=== PATIENT | male | born 1955 | race African-American/Black ===

== ENCOUNTER 2018-02-09 13:36 | Observation (INO) | payer OTHER ==
[~2018-02-09] VITALS: Ht 175.3 cm; Wt 64.6 kg
--- NOTE | 2018-02-09 14:05 | ED SYNCOPE COMPLAINT ---
History of Present Illness General Chief Complaint: Syncope and Near-Syncope Stated Complaint: BIBA SYNCOPE Source: patient, family, EMS Exam Limitations: no limitations Vital Signs & Intake/Output Vital Signs & Intake/Output ED Intake and Output 02/12 0000 02/11 1200 Intake Total 600 Output Total Balance 600 Intake, Oral 600 Allergies Coded Allergies: mercury (elemental) (Intermediate, UNKNOWN 02/09/18) iodine (RASH/SWELLING 02/10/18) Triage Note: TYREE FROM WORK, HAD SYNCOPAL EPISODE AT WORK WHILE EATING LUNCH. PRESENTLY AWAKE, ALERT, REPORTS HE FELT DIZZY PRIOR TO EPISODE, ALOS STAES HE FELL THIS AM, (SLID ON BUTTOCKS DOWN STAIRS). C/O PAIN IN LEFT ELBOW. DENIES CHEST PAIN, SOB OR DIZZINESS NOW. Triage Nurses Notes Reviewed? yes Timing: single episode today Precipitating Factors: lightheadedness Loss of Consciousness: brief (seconds) HPI: 62-year-old male comes into emergency room for further evaluation after having a syncopal episode at work. Patient reports he woke up around 6:30 AM this morning. He reports that he slipped down 14 steps on his rear end. He felt slightly disoriented after the fall. He braced himself with his left elbow. Denies hitting his head. He reports left elbow pain from the fall. Denies any neck pain chest pain abdominal pain. He reports that he drove himself to work. He went later on to go to the cafeteria. He reports that he had 2 bites of a sandwich and then started to see purple. He was feeling lightheaded and dizzy and then lost consciousness. He denied any preceding chest pain or shortness of breath. He was brought in by ambulance. (Baljit FIGUEROA,Ruperto) Reconcile Medications Apixaban (Eliquis) 5 MG TABLET 1 TAB PO BID Atrial Fibrilliation (Reported) Diltiazem HCl 60 MG TABLET 1 TAB PO Q12 Heart health Take and F/U with cardiology Pravastatin Sodium 10 MG TABLET 0.5 TAB PO DAILY Heart Health (Reported) (Lexus MALDONADO,Diana) Past History Travel History Traveled to [place] past 21 day No Medical History Any Pertinent Medical History? see below for history Cardiovascular: AFIB Surgical History Surgical History: non-contributory Psychosocial History What is your primary language Egyptian Tobacco Use: Never used ETOH Use: denies use Family History Hx Contributory? No (Ruperto Whittaker) Review of Systems Review of Systems Constitutional: Reports: no symptoms. EENTM: Reports: no symptoms. Respiratory: Reports: no symptoms. Cardiovascular: Reports: see HPI. GI: Reports: no symptoms. Genitourinary: Reports: no symptoms. Musculoskeletal: Reports: see HPI. Skin: Reports: no symptoms. Neurological/Psychological: Reports: see HPI. All Other Systems: Reviewed and Negative (Ruperto Whittaker) Physical Exam Physical Exam General Appearance: well developed/nourished, alert, awake Head: atraumatic Eyes: Bilateral: normal appearance, PERRL, EOMI. Ears, Nose, Throat: normal ENT inspection, hearing grossly normal Neck: normal inspection, supple, full range of motion, no midline tenderness Respiratory: normal breath sounds, chest non-tender, no respiratory distress, nO BRUISING OR TRAUMA APPRECIATED Cardiovascular: bradycardia, irregularly irregular Gastrointestinal: soft, non-tender Back: normal inspection, normal range of motion, no vertebral tenderness, NO ECCHYMOSIS NO BRUISING NO TENDERNESS WITH PALPATION Extremities: normal inspection, no edema Psychiatric: awake, alert, oriented x 3 Cranial Nerves: normal hearing, normal speech, PERRL Motor/Sensory: no motor/sensory deficits Skin: intact Comments: C CSPINE CLEARED VIA NEXUS CRITERIA Core Measures ACS in differential dx? Yes CVA/TIA Diagnosis: No Sepsis Present: No Sepsis Focused Exam Completed? No (Ruperto Whittaker) Progress Differential Diagnosis: AMI, aortic dissection, aortic valve, drug induced syncope, hyperventilation, orthostatic syncope, other valvular disease, pericardial tamponade, pulmonary embolus, seizure, sick sinus syndrome, subarachnoid hem., TIA/CVA, vasodepressor syncope, ventricular tach/fib Diagnostic Imaging: Viewed by Me: Radiology Read, CT Scan. Discussed w/RAD: Radiology Read, CT Scan. Initial ED EKG: rate (62), AFIB, nonspecific ST T wave chg (Ruperto Whittaker) Plan of Care: Orders Procedure Date/time Status Regular Diet 02/10 B Active Change service to 02/10 1040 Active CBC WITHOUT DIFFERENTIAL 02/10 0600 Complete BASIC ELECTROLYTES PLUS BUN&CR 02/10 0600 Complete TROPONIN LEVEL 02/10 0230 Complete EKG 02/10 0230 Active MISSING MEDICATION FORM 02/09 2201 Active TROPONIN LEVEL 02/09 2030 Complete EKG 02/09 2030 Active Vital Signs 02/09 185 Active Teach/Educate 02/09 185 Active Pain Treatment and Response 02/09 185 Active Nutritional Intake, Monitor 02/09 185 Active Isolation 02/09 185 Active Intake & Output 02/09 185 Active Patient Care Conference 02/09 185 Active Activity/Ambulation 02/09 185 Active Pathway - chart 02/09 184 Active House Staff 02/09 184 Active Code Status 02/09 1847 Active Patient Data 02/[address] in observation 02/09 171 Active ED Holding Orders 02/09 1717 Active Vital Signs 02/09 171 Active Code Status 02/09 1717 Complete MISTAKE 02/09 1505 Active MAGNESIUM 02/09 1422 Complete MISTAKE 02/09 1400 Active Telemetry/Sod Farmer 02/09 1400 Active TROPONIN LEVEL 02/09 1400 Complete PARTIAL THROMBOPLASTIN TIME 02/09 1400 Complete PROTHROMBIN TIME 02/09 1400 Complete COMPREHENSIVE METABOLIC PANEL 02/09 1400 Complete CBC WITHOUT DIFFERENTIAL 02/09 1400 Complete Intake & Output 02/09 1352 Active EKG 02/09 1352 Active Lab Add-on Test 02/09 UNK Active VTE Mechanical Prophylaxis 02/09 UNK Active Current Medications Sig/Joy Start time Last Medication Dose Stop Time Status Admin Diltiazem HCl 60 MG Q12 02/10 1007 AC 02/10 (Cardizem) 1142 Apixaban 5 MG 0700,1900 02/09 1900 AC 02/10 (Eliquis) 0753 Pravastatin Sodium 5 MG 1900 02/09 190 AC (Pravachol) Laboratory Tests 02/10/18 0415: Troponin I < 0.01 02/10/18 0415: Anion Gap 12, Estimated GFR > 60, BUN/Creatinine Ratio 22.9, CBC w Diff NO MAN DIFF REQ, RBC 3.92 L, MCV 97.8 H, MCH 33.5 H, MCHC 34.3, RDW 12.3, MPV 9.4, Gran % 59.1, Lymphocytes % 26.8, Monocytes % 11.9 H, Eosinophils % 1.6, Basophils % 0.6, Absolute Granulocytes 2.9, Absolute Lymphocytes 1.3, Absolute Monocytes 0.6, Absolute Eosinophils 0.1, Absolute Basophils 0 02/09/182034: Troponin I < 0.01 02/09/18 1422: Anion Gap 14, Estimated GFR > 60, BUN/Creatinine Ratio 31.4 H, Glucose 111 H, Calcium 9.2, Magnesium 1.6, Total Bilirubin 0.9, AST 47, ALT 48, Alkaline Phosphatase 67, Troponin I < 0.01, Total Protein 7.2, Albumin 4.5, Globulin 2.7, Albumin/Globulin Ratio 1.7, PT 16.1 H, INR 1.47 H, APTT 29, CBC w Diff NO MAN DIFF REQ, RBC 3.84 L, MCV 97.0 H, MCH 33.8 H, MCHC 34.9, RDW 12.3, MPV 8.7, Gran % 79.8 H, Lymphocytes % 10.9 L, Monocytes % 8.2, Eosinophils % 0.7, Basophils % 0.4, Absolute Granulocytes 5.6, Absolute Lymphocytes 0.8 L, Absolute Monocytes 0.6, Absolute Eosinophils 0, Absolute Basophils 0 Diagnostic Imaging: Viewed by Me: Radiology Read, CT Scan. Discussed w/RAD: Radiology Read, CT Scan. Radiology Impression: PATIENT: JENNIFER CARRILLO PRESENT AGE: 62 PATIENT ACCOUNT NO: [id number] : 53 LOCATION: [facility] ORDERING PHYSICIAN: Ruperto FIGUEROA SERVICE DATE: 02/09/18 EXAM TYPE : CAT - CT HEAD WO IV CONTRAST EXAMINATION: CT HEAD WITHOUT CONTRAST CLINICAL INFORMATION: Fell down 12 steps. Syncope after. COMPARISON: None. TECHNIQUE: Contiguous axial imaging was performed from the skull base to vertex without intravenous administration of contrast. DLP: 616 mGy-cm. FINDINGS: There is no intracranial hemorrhage, large infarction, or mass lesion. There is no extra- axial collection. There is mild diffuse brain parenchymal volume loss with prominence of the ventricles and sulci. No evidence of hydrocephalus. The paranasal sinuses are clear. The mastoids and middle ear cavities are clear. The calvarium is intact. IMPRESSION: No acute intracranial abnormality. DICTATED BY: Bella Owusu MD DATE/TIME DICTATED:02/09/181557 QUALITY ASSURANCE TESTER:GRACIE DATE/TIME TRANSCRIBED:02/09/181557 CONFIDENTIAL, DO NOT COPY WITHOUT APPROPRIATE AUTHORIZATION. <Electronically signed in Other Vendor System> SIGNED BY: Bella Owusu MD 02/09/18 1605, PATIENT: JENNIFER CARRILLO PRESENT AGE: 62 PATIENT ACCOUNT NO: [id number] : 53 LOCATION: [facility] ORDERING PHYSICIAN: Ruperto FIGUEROA SERVICE DATE: 02/09/181400 EXAM TYPE: RAD - XRY-ELBOW 3 OR MORE VIEWS, L EXAMINATION: XR ELBOW, LEFT CLINICAL INFORMATION: Fall. Pain. COMPARISON: None TECHNIQUE: Four views of the left elbow. FINDINGS: The bones and soft tissues are normal. No fracture or joint effusion. Alignment is anatomic. Joint spaces are maintained. IMPRESSION: No acute abnormality. If pain persists follow-up studies are recommended. DICTATED BY: Nick Coleman MD DATE/TIME DICTATED:02/09/181540 QUALITY ASSURANCE TESTER :GRACIE DATE/TIME TRANSCRIBED:02/09/181540 CONFIDENTIAL, DO NOT COPY WITHOUT APPROPRIATE AUTHORIZATION. <Electronically signed in Other Vendor System> SIGNED BY: Nick Coleman MD 02/09/18 1546, PATIENT: JENNIFER CARRILLO PRESENT AGE: 62 PATIENT ACCOUNT NO: [id number] : LOCATION: [facility] ORDERING PHYSICIAN: Ruperto FIGUEROA SERVICE DATE: EXAM TYPE: RAD - XRY-CHEST XRAY, TWO VIEWS EXAMINATION: XR CHEST CLINICAL INFORMATION: Trauma. COMPARISON: None TECHNIQUE: 2 views of the chest were obtained. FINDINGS: There is an old healed fracture of the posterior lateral right fourth rib. There is no acute osseous abnormality. There is no pleural effusion or pneumothorax. The lungs are clear. The cardiac and mediastinal contours are normal. The heart size is normal. There are calcifications of aortic arch. There is mild degenerative spondylosis of the dorsal spine. IMPRESSION: No acute abnormality the chest. DICTATED BY: Nick Coleman MD DATE/TIME DICTATED:02/09/181538 QUALITY ASSURANCE TESTER:LITTLE DATE/TIME TRANSCRIBED:02/09/181538 CONFIDENTIAL, DO NOT COPY WITHOUT APPROPRIATE AUTHORIZATION. <Electronically signed in Other Vendor System> SIGNED BY: Nick Coleman MD 02/09/181543 (Diana Alberts MD) Departure Departure Condition: Stable Departure Forms: Customer Survey General Discharge Information (Ruperto Whittaker) Departure Disposition: STILL A PATIENT Clinical Impression Primary Impression: Syncope and collapse Secondary Impressions: Bradycardia, Fall Prescriptions: Current Visit Scripts Diltiazem HCl 1 TAB PO Q12 #30 TAB Take and F/U with cardiology Admission Note Documentation of Exam: Documentation of any treatments & extenuating circumstances including Concerns Regarding Discharge (functional status, medication knowledge or non-compliance, living conditions, etc.) that warrant an admission rather than observation: Observation Note [facility] Non-ED OBS Care Area Rationale for Observation: My rational for observation is as follows fall down flight of stairs followed by syncopal episode 3 hours later, afib on monitor with bradycardia to 40's, willl observe in telemetry, cardiology consult, neuro checks, echocardiogram. (Diana Alberts MD) Departure Forms: Customer Survey General Discharge Information Prescriptions: Current Visit Scripts Apixaban (Eliquis) 1 TAB PO BID #60 TAB Pravastatin Sodium 0.5 TAB PO DAILY #30 TAB Diltiazem HCl (Diltiazem 24HR ER) 1 CAP PO DAILY #30 CAP (Ruperto Whittaker) Departure Disposition: STILL A PATIENT Clinical Impression Primary Impression: Syncope and collapse Secondary Impressions: Bradycardia, Fall Admission Note Documentation of Exam: Documentation of any treatments & extenuating circumstances including Concerns Regarding Discharge (functional status, medication knowledge or non-compliance, living conditions, etc.) that warrant an admission rather than observation: Observation Note Spoke With: Pushpa Lyons MD [facility] Patient In: Non-ED OBS Care Area Rationale for Observation: My rational for observation is as follows fall down flight of stairs followed by syncopal episode 3 hours later, afib on monitor with bradycardia to 40's, willl observe in telemetry, cardiology consult, neuro checks, echocardiogram. (Diana Alberts MD)
[2018-02-09 14:29] LABS: ABSOLUTE BASOPHIL COUNT 0 /CUMM (0.0-0.2); ABSOLUTE EOSINOPHIL COUNT 0 /CUMM (0.0-0.7); ABSOLUTE GRANULOCYTE CT 5.6 /CUMM (1.4-6.5); ABSOLUTE LYMPH COUNT 0.8 /CUMM (1.2-3.4); ABSOLUTE MONOCYTE COUNT 0.6 /CUMM (0.10-0.60); BASOPHIL % 0.4 % (0.0-2.0); EOSINOPHIL % 0.7 % (0-5); GRANULOCYTE % 79.8 % (42.2-75.2); HEMATOCRIT 37.2 % (42-52); MEAN CORPUSCULAR HGB 33.8 PG (27.0-31.0); MEAN CORPUSCULAR HGB CONC 34.9 G/DL (33.0-37.0); MEAN PLATELET VOLUME 8.7 FL (7.4-10.4); RBC DISTRIBUTION WIDTH 12.3 % (11.5-14.5); RED BLOOD CELL CT 3.84 /CUMM (4.70-6.10); WHITE BLOOD CELL COUNT 7.1 /CUMM (4.8-10.8)
[2018-02-09 14:43] LABS: PT 16.1 SEC (9.4-12.5); PTT 29 SEC (25-37)
[2018-02-09 14:49] LABS: PLATELET COUNT 96 /CUMM (130-400)
--- NOTE | 2018-02-09 15:44 | RADIOLOGY REPORT ---
EXAMINATION: XR CHEST CLINICAL INFORMATION: Trauma. COMPARISON: None TECHNIQUE: 2 views of the chest were obtained. FINDINGS: There is an old healed fracture of the posterior lateral right fourth rib. There is no acute osseous abnormality. There is no pleural effusion or pneumothorax. The lungs are clear. The cardiac and mediastinal contours are normal. The heart size is normal. There are calcifications of aortic arch. There is mild degenerative spondylosis of the dorsal spine. IMPRESSION: No acute abnormality the chest.
--- NOTE | 2018-02-09 15:46 | RADIOLOGY REPORT ---
EXAMINATION: XR ELBOW, LEFT CLINICAL INFORMATION: Fall. Pain. COMPARISON: None TECHNIQUE: Four views of the left elbow. FINDINGS: The bones and soft tissues are normal. No fracture or joint effusion. Alignment is anatomic. Joint spaces are maintained. IMPRESSION: No acute abnormality. If pain persists follow-up studies are recommended.
--- NOTE | 2018-02-09 16:05 | CT SCAN REPORT ---
EXAMINATION: CT HEAD WITHOUT CONTRAST CLINICAL INFORMATION: Fell down 12 steps. Syncope after. COMPARISON: None. TECHNIQUE: Contiguous axial imaging was performed from the skull base to vertex without intravenous administration of contrast. DLP: 616 mGy-cm. FINDINGS: There is no intracranial hemorrhage, large infarction, or mass lesion. There is no extra-axial collection. There is mild diffuse brain parenchymal volume loss with prominence of the ventricles and sulci. No evidence of hydrocephalus. The paranasal sinuses are clear. The mastoids and middle ear cavities are clear. The calvarium is intact. IMPRESSION: No acute intracranial abnormality.
--- NOTE | 2018-02-09 17:44 | PN- Att Addend ---
Attending Addendum Attending Brief Note Patient seen and examined. Plan of care discussed with the medical team and the patient. Available lab work and radiology test reports were reviewed. Patient 62-year-old male with history of A. fib currently on Cardizem and eliquis who fell down this morning while going downstairs without losing consciousness. Later he went to work and while eating lunch or passed out momentarily. He felt lightheaded before the episode. He denies any palpitation difficulty breathing recent fever chills nausea vomiting diarrhea or abdominal pain. A 14 point review system otherwise is negative. While in ED he was observed to have his heart rate dropped to 40s although patient is asymptomatic. Please see interns history physical for social history medication allergies and family history. Family historyis unremarkable and noncontributory to current presentation. Vital Signs Date Time Temp Pulse Resp B/P B/P Pulse O2 O2 Flow FiO2 Mean Ox Delivery Rate 02/09 1415 56 02/09 1348 99.0 47 20 108/66 Intake & Output 02/09 1600 02/09 0800 02/09 0000 Intake Total 1000 Output Total Balance 1000 Intake, IV 1000 Patient 145 lb Weight Weight Reported by Patient Measurement Method Exam: General: Patient awake alert oriented without any distress CVS: S1 plus S2 without any murmur or gallops Chest: Few scattered crepitation without any wheeze. There is no respiratory distress. Abdomen: Soft non-tender, bowel sound present, no guarding or rebound RESEARCH BIOSTATISTICIAN: Awake alert oriented without any focal neuro deficit and follows commands appropriately Extremities: No edema; no clubbing or cyanosis noted Laboratory Tests 02/09/18 1422: Anion Gap 14, Estimated GFR > 60, BUN/Creatinine Ratio 31.4 H, Glucose 111 H, Calcium 9.2, Total Bilirubin 0.9, AST 47, ALT 48, Alkaline Phosphatase 67, Troponin I < 0.01, Total Protein 7.2, Albumin 4.5, Globulin 2.7, Albumin/ Globulin Ratio 1.7, PT 16.1 H, INR 1.47 H, APTT 29, CBC w Diff NO MAN DIFF REQ , RBC 3.84 L, MCV 97.0 H, MCH 33.8 H, MCHC 34.9, RDW 12.3, MPV 8.7, Gran % 79.8 H, Lymphocytes % 10.9 L, Monocytes % 8.2, Eosinophils % 0.7, Basophils % 0.4, Absolute Granulocytes 5.6, Absolute Lymphocytes 0.8 L, Absolute Monocytes 0.6, Absolute Eosinophils 0, Absolute Basophils 0 EKG shows A. fib Had CT scan did not show any bleed. Chest x-ray is unremarkable. Elbow x-ray was negative for any fracture. Assessment * Fall * Syncope likely vasovagal, could be possibly related to bradycardia * History of A. fib currently on Cardizem and eliquis Plan * Observe on telemetry * Check troponin 2 more sets * Hold Cardizem * Continue eliquis * Check orthostatics * Cardiology consultation
--- NOTE | 2018-02-09 17:52 | History & Physical ---
See Addendum General Information and HPI MD Statement: I have seen and personally examined JENNIFER CARRILLO and documented this H&P. The patient is a 62 year old M who presented with a patient stated chief complaint of [syncopal episode and fall]. 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 Around 6 AM the patient slipped and fell while he was going down the stairs. He denies dizziness, shortness breath, blurry vision, or loss of consciousness prior to this fall. After he slipped down 14 steps he felt mildly confused and back to his normal state of health soon after. He denies any head trauma. The patient felt fine so he drove work. Around 12:30 PM he was eaten lunch when he suddenly noticed that the colors looks weird and everything looks purple and felt not himself after which she lost consciousness for less than a minute. According to his colleague who was sitting next to. He denies dizziness, palpitation, or chest pain prior to the fall. His friend denies any seizure activity and the patient denies tongue biting or loss of control over bowel or urine habits. The patient denies any confusion, weakness, or numbness after the syncopal episode. The patient was advised by his rate inserter for plan for cardioversion, however he would like to do it after 2 weeks given that he will be 63 and then he will get Medicare. Allergies/Medications Allergies: Coded Allergies: mercury (elemental) (Intermediate, UNKNOWN 02/09/18) iodine (RASH/SWELLING 02/10/18) Home Med list Apixaban (Eliquis) 5 MG TABLET 1 TAB PO BID blood thiner Diltiazem HCl (Diltiazem 24HR ER) 240 MG CAP.ER.24H 1 CAP PO DAILY heart health Pravastatin Sodium 10 MG TABLET 0.5 TAB PO DAILY hdl Observation Initial Note - I have personally examined JENNIFER CARRILLO on 02/10/18 at 0745. The disposition of JENNIFER CARRILLO is uncertain at this time and before a determination can be made, he requires a period of observation for the following reasons [need monitoring for syncope and observed bradycardia on ED] Past History Travel History Traveled to [place] past 21 day No Medical History Cardiovascular: AFIB Surgical History Surgical History: non-contributory Past Family/Social History Psychosocial History ETOH Use: denies use Review of Systems Review of Systems Constitutional: Denies: chills, diaphoresis, fever, malaise, weakness, unexplained weight loss. EENTM: Reports: visual changes. Denies: blurred vision, double vision, hearing changes. Cardiovascular: Reports: syncope. Denies: chest pain, orthopena, palpitations, peripheral edema. Respiratory: Denies: cough, orthopnea, short of breath, sputum production, wheezing. GI: Denies: abdominal pain, constipation, diarrhea, nausea, vomiting. Genitourinary: Denies: dysuria, hematuria. Musculoskeletal: Denies: joint pain. Skin: Denies: rash. Neurological/Psychological: Reports: confusion. Denies: anxiety, ataxia, depressed, dementia, emotional problems, headache, numbness, paresthesia, tingling, tremors, tonic-clonic seizures. Exam & Diagnostic Data Last 24 Hrs of Vital Signs/I&O Vital Signs Date Time Temp Pulse Resp B/P B/P Pulse O2 O2 Flow FiO2 Mean Ox Delivery Rate 02/09 1820 98.5 83 18 100/60 96 Room Air 02/09 1744 80 16 135/83 99 Room Air 02/09 1415 56 02/09 1348 99.0 47 20 108/66 Intake & Output 02/09 1600 02/09 0800 02/09 0000 Intake Total 1000 Output Total Balance 1000 Intake, IV 1000 Patient 65.771 kg Weight Weight Reported by Patient Measurement Method Physical Exam General Appearance Alert, Oriented X3, Cooperative, No Acute Distress Skin No Rashes HEENT Atraumatic, PERRLA, EOMI, Mucous Membr. moist/pink Neck No JVD Cardiovascular Normal S1, Normal S2, No Murmurs, irregular Lungs decrease air-entry over lung base bilaterally. no additional sounds Abdomen Soft, No Tenderness Neurological Normal Speech, Strength at 5/5 X4 Ext, Normal Tone, Cranial Nerves 3-12 NL Extremities No Clubbing, No Cyanosis, No Edema Last 24 Hrs of Labs/Ozzy: Laboratory Tests 02/09/18 1422: Anion Gap 14, Estimated GFR > 60, BUN/Creatinine Ratio 31.4 H, Glucose 111 H, Calcium 9.2, Magnesium Pending, Total Bilirubin 0.9, AST 47, ALT 48, Alkaline Phosphatase 67, Troponin I < 0.01, Total Protein 7.2, Albumin 4.5, Globulin 2.7, Albumin/Globulin Ratio 1.7, PT 16.1 H, INR 1.47 H, APTT 29, CBC w Diff NO MAN DIFF REQ, RBC 3.84 L, MCV 97.0 H, MCH 33.8 H, MCHC 34.9, RDW 12.3, MPV 8.7, Gran % 79.8 H, Lymphocytes % 10.9 L, Monocytes % 8.2, Eosinophils % 0.7, Basophils % 0.4, Absolute Granulocytes 5.6, Absolute Lymphocytes 0.8 L, Absolute Monocytes 0.6, Absolute Eosinophils 0, Absolute Basophils 0 Assessment/Plan Assessment: This is 62-year-old male with a recently diagnosed atrial fibrillation who presented after fall that was followed by syncopal episode a few hours later. While in the ED he was found to be bradycardic down to 47. The patient is currently on Cardizem 240 extended release and liquids for anticoagulation. He is also on statin for hyperlipidemia. We didn't have any old records on the patient, is currently unknown if he has any underlying anatomical abnormality that may explain his atrial fibrillation. He has a copy of his recent echocardiogram at home, his for bringing it early in the morning. The patient will need to be monitored in telemetry to look for bradycardia, bradycardia tachycardia syndrome, and other arrhythmias. He took his Cardizem early in the morning. Given the cardioversion was recommended by his cardiology , most likely he has no significant abnormalities on his recent echocardiogram. We will consult rate inserter in a.m. Problem list 1.Atrial fibrillation with one episode of bradycardia while on Cardizem 240 2-HDL * We'll admit the patient to telemetry floor * We will rule out ACS with serial EKG and troponin first set was insignificant * Orthostatic check * Patient already got the Cardizem dose for today, if he sustained tomorrow we will start him in Cardizem 3 times a day recheck if he can be controlled with the lower dose of Cardizem given the bradycardia that was observed in the ED. * We will continue anticoagulation and statin * Heart healthy diet * Obtain records especially echocardiogram * DVT prophylaxis with Alps and Eliquis * FC As Ranked By This Provider Problem List: 1. Bradycardia 2. Fall 3. Syncope and collapse Core Measures/Misc (06/13) Acute Coronary Syndrome ACS Diagnosis: No Congestive Heart Failure Congestive Heart Failure Diagnosis No Cerebrovascular Accident CVA/TIA Diagnosis: No VTE (View Protocol) VTE Risk Factors Acute Medical Illness No Mechanical VTE Prophylaxis d/t N/A MechProphylax Ordered No VTE Pharm Prophylaxis d/t NA PharmProphylax ordered Sepsis (View protocol) Sepsis Present: No
[2018-02-09] MEDS ORDERED: PRAVASTATIN SOD10 M2 PO (18:08)
[2018-02-09] MEDS ORDERED: ELIQUIS5 M1 PO (18:08)
[2018-02-09] MEDS ORDERED: DILTIAZEM 24HR240 MG PO (18:08)
[2018-02-09 18:20] VITALS: BP 100/60
[2018-02-09 22:32] VITALS: BP 106/78
[2018-02-10 04:35] LABS: ABSOLUTE BASOPHIL COUNT 0 /CUMM (0.0-0.2); ABSOLUTE EOSINOPHIL COUNT 0.1 /CUMM (0.0-0.7); ABSOLUTE GRANULOCYTE CT 2.9 /CUMM (1.4-6.5); ABSOLUTE LYMPH COUNT 1.3 /CUMM (1.2-3.4); ABSOLUTE MONOCYTE COUNT 0.6 /CUMM (0.10-0.60); BASOPHIL % 0.6 % (0.0-2.0); EOSINOPHIL % 1.6 % (0-5); GRANULOCYTE % 59.1 % (42.2-75.2); HEMATOCRIT 38.3 % (42-52); MEAN CORPUSCULAR HGB 33.5 PG (27.0-31.0); MEAN CORPUSCULAR HGB CONC 34.3 G/DL (33.0-37.0); MEAN CORPUSCULAR VOLUME 97.8 FL (80.0-94.0); MEAN PLATELET VOLUME 9.4 FL (7.4-10.4); PLATELET COUNT 92 /CUMM (130-400); RBC DISTRIBUTION WIDTH 12.3 % (11.5-14.5); RED BLOOD CELL CT 3.92 /CUMM (4.70-6.10); WHITE BLOOD CELL COUNT 4.9 /CUMM (4.8-10.8)
[2018-02-10 06:30] VITALS: BP 116/78
--- NOTE | 2018-02-10 10:11 | PN-Observation ---
Merry MALDONADO,[facility] 02/10/18 1010: Observation Note Observation Note _ I have personally examined JENNIFER CARRILLO. him disposition is uncertain at this time. Before a determination can be made, he requires continued observation for the following reasons [tele monitoring after significant medication reduction given HER bradycardia. We also need to obtain echo prior to discharge patient]. Assessment/Plan Medical Assessment: 62-year-old male with PMH of A.fib, HLD, and Hep C, who presented after fall that was followed by syncopal episode a few hours later. While in the ED he was found to be bradycardic down to 47. At home he is on Cardizem ER 240 and Eliquis for anticoagulation. Overnight no significant tele findings. ACS was ruled out. Problem list 1.Atrial fibrillation with one episode of bradycardia while on Cardizem 240 2-HDL Plan * We will decrease Cardizem to 60 mg twice a day * We will continue anticoagulation and statin * Heart healthy diet * Obtain records especially echocardiogram * DVT prophylaxis with Alps and Eliquis * FC Problem List: 1. Syncope and collapse 2. Bradycardia 3. Fall Subjective Follow-up For: Fall Syncopal episode Atrial fibrillation Subjective: Low fever overnight, MAXIMUM TEMPERATURE 100, saturating well on room air, hemodynamically stable without any episodes of bradycardia. Patient is sitting in chair looks relaxed and comfortable and denies any current active complaint Review of Systems Constitutional: Denies: chills, fever, weakness. EENTM: Denies: visual changes, hearing changes. Cardiovascular: Denies: chest pain, orthopena, palpitations, peripheral edema, syncope. Respiratory: Denies: cough, short of breath, sputum production, wheezing. Gastrointestinal: Denies: abdominal pain, constipation, diarrhea, nausea. Genitourinary: Denies: dysuria. Objective Last 24 Hrs of Vital Signs/I&O Vital Signs Date Time Temp Pulse Resp B/P B/P Pulse O2 O2 Flow FiO2 Mean Ox Delivery Rate 02/10 0630 98.9 81 18 116/78 97 02/09 2330 98.4 02/09 2232 100.1 72 18 106/78 96 02/09 1820 98.5 83 18 100/60 96 Room Air 02/09 1744 80 16 135/83 99 Room Air 02/09 1415 56 02/09 1348 99.0 47 20 108/66 Intake & Output 02/10 1600 02/10 0800 02/10 0000 Intake Total 220 580 Output Total Balance 220 580 Intake, Oral 220 580 Patient 65.771 kg Weight Physical Exam General Appearance: Alert, Oriented X3, Cooperative, No Acute Distress Skin: No Rashes HEENT: Atraumatic, PERRLA, EOMI, Mucous Membr. moist/pink Neck: No JVD Cardiovascular: Regular Rate, Normal S1, Normal S2, No Murmurs Lungs: Clear to Auscultation, Normal Air Movement Abdomen: Soft, No Tenderness Neurological: Normal Speech Extremities: No Clubbing, No Cyanosis, No Edema Current Medications: Current Medications Sig/Joy Start time Last Medication Dose Route Stop Time Status Admin Apixaban 5 MG 0700,1900 02/09 1900 AC 02/10 PO 0753 Diltiazem HCl 60 MG Q12 02/10 1007 AC PO Magnesium Oxide 400 MG ONE ONE 02/09 2015 DC 02/09 PO 02/10 2016 215 Pravastatin Sodium 5 MG 1900 02/09 1900 AC PO Pravastatin Sodium 5 MG DAILY 02/09 1848 DC PO Last 24 Hrs of Labs/Mics: Laboratory Tests 02/10/18 0415: Troponin I < 0.01 02/10/18 0415: Anion Gap 12, Estimated GFR > 60, BUN/Creatinine Ratio 22.9, CBC w Diff NO MAN DIFF REQ, RBC 3.92 L, MCV 97.8 H, MCH 33.5 H, MCHC 34.3, RDW 12.3, MPV 9.4, Gran % 59.1, Lymphocytes % 26.8, Monocytes % 11.9 H, Eosinophils % 1.6, Basophils % 0.6, Absolute Granulocytes 2.9, Absolute Lymphocytes 1.3, Absolute Monocytes 0.6, Absolute Eosinophils 0.1, Absolute Basophils 0 02/09/18 2035: Troponin I < 0.01 02/09/18 1422: Anion Gap 14, Estimated GFR > 60, BUN/Creatinine Ratio 31.4 H, Glucose 111 H, Calcium 9.2, Magnesium 1.6, Total Bilirubin 0.9, AST 47, ALT 48, Alkaline Phosphatase 67, Troponin I < 0.01, Total Protein 7.2, Albumin 4.5, Globulin 2.7, Albumin/Globulin Ratio 1.7, PT 16.1 H, INR 1.47 H, APTT 29, CBC w Diff NO MAN DIFF REQ, RBC 3.84 L, MCV 97.0 H, MCH 33.8 H, MCHC 34.9, RDW 12.3, MPV 8.7, Gran % 79.8 H, Lymphocytes % 10.9 L, Monocytes % 8.2, Eosinophils % 0.7, Basophils % 0.4, Absolute Granulocytes 5.6, Absolute Lymphocytes 0.8 L, Absolute Monocytes 0.6, Absolute Eosinophils 0, Absolute Basophils 0 Martha Valverde 02/10/18 1115: Attending Addendum Attending Brief Note Patient here in observation status. Patient goes into bradycardia and there is concern regarding tacy-vanessa syndrome. Monitor his HR on unusaul dose of cardizem 60 q 12 in telmetry setting. Obtain previous records and follow cardiology.
[2018-02-10] MEDS ORDERED: ELIQUIS5 M1 PO ×2 (12:59→13:15)
[2018-02-10] MEDS ORDERED: PRAVASTATIN SOD10 M2 PO (13:16)
[2018-02-10] MEDS ORDERED: DILTIAZEM 24HR240 MG PO (13:16)
[2018-02-10 14:19] VITALS: BP 112/60
--- NOTE | 2018-02-10 18:16 | Cons- Cardiology ---
General Information and HPI Consulting Request Date of Consult: 02/10/18 Requested By: Martha Valverde MD History of Present Illness: Max is a 62 year old male with history of atrial fibrillation since 2016. He presented to [facility] after a fall followed by syncope. He reports that he slipped on the top steps of his home falling on his back. He denies palpitations or loss or any decrease in sensorium at that time. He does admit to feeling mildly confused after the fall. Later that day, while at work, he experienced a loss of consciousness. He had arisen to walk to the cafeteria and after sitting down lost consciousness. He did feel some premonitory symptoms of lightheadedness and saw some green and purple colors before he lost consciousness but he did not recall any palpitations. There was no witnessed seizure activity. He reports a prior episode of falling down the steps of his house as well. Otherwise this patient is free of any chest pain, pressure, tightness or shorntess of breath. He only rarely noted palpitations. It should be noted that this patient was recommended to have a DC cardioversion but the patient put this off due to insurance reasons. Allergies/Medications Allergies: Coded Allergies: mercury (elemental) (Intermediate, UNKNOWN 02/09/18) iodine (RASH/SWELLING 02/10/18) Home Med List: Apixaban (Eliquis) 5 MG TABLET 1 TAB PO BID Atrial Fibrilliation (Reported) Diltiazem HCl (Diltiazem 24HR ER) 240 MG CAP.ER.24H 1 CAP PO DAILY Blood Pressure (Reported) Pravastatin Sodium 10 MG TABLET 0.5 TAB PO DAILY Heart Health (Reported) Review of Systems Review of Systems: A 12 point review of systems is unremarkable. Past History Travel History Traveled to [place] past 21 day No Medical History Cardiovascular: AFIB Surgical History Surgical History: non-contributory Psychosocial History Smoking Status: Former Smoker ETOH Use: denies use Exam & Diagnostic Data Vital Signs and I&O Vital Signs Date Time Temp Pulse Resp B/P B/P Pulse O2 O2 Flow FiO2 Mean Ox Delivery Rate 02/10 1419 98.8 77 20 112/60 96 Room Air 02/10 1142 82 02/10 0630 98.9 81 18 116/78 97 02/09 2330 98.4 02/09 2232 100.1 72 18 106/78 96 05/16 1820 98.5 83 18 100/60 96 Room Air Intake & Output 02/10 1600 02/10 0800 02/10 0000 02/09 1600 02/09 0800 02/09 0000 Intake Total 981 857 6343 Output Total 800 Balance -800 995 634 6009 Intake, IV 1000 Intake, Oral 220 580 Output, Urine 800 Patient 145 lb 145 lb Weight Weight Reported by Patient Measurement Method Physical Exam: General: WD/WN male in NAD; alert and oriented x 3 HEENT: NC/AT, PERRL, EOMI Neck: no JVD, no carotid bruit Heart: irregularly irregular Lungs: clear bilaterally Abdomen: soft, NT, +ve bowel sounds Extremities: no edema Assessment/Plan Assessment/Plan * This patient has had a true syncopal episodes and multiple prior falls associated with a slight decrease in his mental acuity. 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 At the moment, his telemetry does not document this however. We will continue to monitor for another day. If tachy-vanessa syndrome is present then the two options for treatment are 1) place a permanent pacemaker and use negative chronotropic agents as needed for tachycardia or 2) cardiovert to a sinus rhythm and place on an antiarrhythmic drug to maintain a sinus rhythm. I suspect that the later approach is intended by the patient's usual stock handler floorperson although my hope for pattern fitter success is not hopeful due to the extended length of time the patient has been in atrial fibrillation and due to his enlarged left atrium. We will have the patient's usual stock handler floorperson decide. * If necessary, the patient can have a loop recorder implanted to assess for tachy-vanessa syndrome if this diagnosis cannot be confirmed and if the patient continues to syncopize. * For now, I feel it is safer to let the patient run a slightly faster heart rate rather than pass out. Decrease his Cardizem to 60mg PO BID and monitor on telemetry. Obtain an echocardiogram. If he appears stable tomorrow then he can follow up with his usual heart doctor. Consult Acknowledgment - Thank you for your consult request.
[2018-02-10 22:10] VITALS: BP 100/78
[2018-02-11 06:00] VITALS: BP 100/68
[2018-02-11 08:16] LABS: ABSOLUTE BASOPHIL COUNT 0 /CUMM (0.0-0.2); ABSOLUTE EOSINOPHIL COUNT 0.1 /CUMM (0.0-0.7); ABSOLUTE GRANULOCYTE CT 1.5 /CUMM (1.4-6.5); ABSOLUTE LYMPH COUNT 1.2 /CUMM (1.2-3.4); ABSOLUTE MONOCYTE COUNT 0.4 /CUMM (0.10-0.60); BASOPHIL % 0.5 % (0.0-2.0); EOSINOPHIL % 3.4 % (0-5); GRANULOCYTE % 46.6 % (42.2-75.2); HEMATOCRIT 40.2 % (42-52); MEAN CORPUSCULAR HGB 33.6 PG (27.0-31.0); MEAN CORPUSCULAR HGB CONC 33.9 G/DL (33.0-37.0); MEAN CORPUSCULAR VOLUME 99.2 FL (80.0-94.0); MEAN PLATELET VOLUME 9.8 FL (7.4-10.4); RBC DISTRIBUTION WIDTH 12.4 % (11.5-14.5); RED BLOOD CELL CT 4.05 /CUMM (4.70-6.10); WHITE BLOOD CELL COUNT 3.3 /CUMM (4.8-10.8)
--- NOTE | 2018-02-11 08:53 | PN-Observation ---
Merry MALDONADO,[facility] 02/11/18 0853: Observation Note Observation Note _ I have personally examined JENNIFER CARRILLO. him disposition is uncertain at this time. Before a determination can be made, he requires continued observation for the following reasons came after syncope, found to be bradycardic while on high does cardizem, does was adjusted and the pt was monitored, he is stable for discharge late today]. Assessment/Plan Medical Problem List: 1. Bradycardia 2. Fall 3. Syncope and collapse Plan: 62-year-old male with PMH of A.fib, HLD, and Hep C, who presented after fall that was followed by syncopal episode a few hours later. While in the ED he was found to be bradycardic down to 47. At home he is on Cardizem ER 240 and Eliquis. Overnight had multiple bradycardia, however close look at his tele monitor revealed no bradycardia. ACS was ruled out. Problem list 1.Atrial fibrillation with one episode of bradycardia while on Cardizem 240 2-HDL Plan * Stable on Cardizem 60 mg twice a day, we will discharge on same does and instruct the pt to follow with cardiology for cardioversion or possible pacemaker. * The pt denies dizziness, presyncope or syncope episodes since admission and cardizem reduction. He was observed for 2 days on tele and will be observed for another 2 days at home by his . If no symptoms until wednesday he will be cleared to go back to work. * We will continue anticoagulation and statin * Heart healthy diet * DVT prophylaxis with Alps and Eliquis * FC DVT/Prophylaxis: mechanical, pharmacological Subjective Follow-up For: Fall Syncopal episode Atrial fibrillation Tele-Events Since Last Visit: no significant findings Subjective: Afebrile , saturating well on room air, hemodynamically stable without any episodes of bradycardia. Patient is sitting in chair looks relaxed and comfortable and denies any current active complaint Review of Systems Constitutional: Reports: no symptoms, see HPI. Objective Last 24 Hrs of Vital Signs/I&O Vital Signs Date Time Temp Pulse Resp B/P B/P Pulse O2 O2 Flow FiO2 Mean Ox Delivery Rate 02/11 1109 98.3 74 16 100/68 02/11 0600 98.3 74 16 100/68 96 02/11 0145 68 118/82 02/10 2210 99.0 91 16 100/78 91 Intake & Output 02/11 1600 02/11 0800 02/11 0000 Intake Total 600 400 Output Total Balance 600 400 Intake, Oral 600 400 Patient 64.58 kg Weight Physical Exam General Appearance: Alert, Oriented X3, Cooperative, No Acute Distress Skin: No Rashes HEENT: Atraumatic, PERRLA, EOMI, Mucous Membr. moist/pink Neck: No JVD Cardiovascular: Regular Rate, Normal S1, Normal S2, No Murmurs Lungs: Clear to Auscultation, Normal Air Movement Abdomen: Soft, No Tenderness Neurological: Normal Gait, Normal Speech Extremities: No Clubbing, No Cyanosis, No Edema Current Medications: Current Medications Sig/Joy Start time Last Medication Dose Route Stop Time Status Admin Apixaban 5 MG 0700,1900 02/09 1900 DCD 02/11 PO 0707 Diltiazem HCl 60 MG Q12 02/11 2100 DC PO Diltiazem HCl 60 MG Q12 02/11 1100 DCD 02/11 PO 1109 Diltiazem HCl 120 MG DAILY 02/11 0900 CAN PO Diltiazem HCl 30 MG .STK-MED ONE 02/11 0151 DC PO 02/11 0152 Diltiazem HCl 60 MG Q12 02/10 1007 DC 02/11 PO 0145 Pravastatin Sodium 5 MG 1900 02/09 1900 DCD 02/10 PO 1901 Last 24 Hrs of Labs/Mics: Laboratory Tests 02/11/18 0630: Anion Gap 10, Estimated GFR > 60, BUN/Creatinine Ratio 21.7, Magnesium 1.7, CBC w Diff NO MAN DIFF REQ, RBC 4.05 L, MCV 99.2 H, MCH 33.6 H, MCHC 33.9, RDW 12.4, MPV 9.8, Gran % 46.6, Lymphocytes % 37.8, Monocytes % 11.7 H, Eosinophils % 3.4, Basophils % 0.5, Absolute Granulocytes 1.5, Absolute Lymphocytes 1.2, Absolute Monocytes 0.4, Absolute Eosinophils 0.1, Absolute Basophils 0 Martha Valverde 02/11/18 1053: Attending Addendum Attending Brief Note Patient here in observation status. Patient goes into bradycardia and there is concern regarding tachy-vanessa syndrome. He tolerated unusual dose of cardizem 60 q 12 in telemetry setting. Cardiology Dr Lorenzo appreciated. Recommendations to follow outpatient cardiology for further care. He appears to be vitally and medically stable for discharge.
[2018-02-11 09:33] LABS: PLATELET COUNT 95 /CUMM (130-400)
[2018-02-11] MEDS ORDERED: DILTIAZEM HCL PO (10:11)
--- NOTE | 2018-02-11 10:15 | Patient Discharge Instructions ---
Discharge Instructions General Discharge Information You were seen/treated for: syncope episode and fall Special Instructions: -Please follow with your heart doctor ASIM next week. -Please discuss the medicatinos does and frequancy. -Please avoid driving until cleared by your heart doctor. Diet Continue normal diet: Yes Activity Full Activity/No Limits: Yes Acute Coronary Syndrome Inclusion Criteria At DC or during hospital stay patient has or had the following: ACS DIAGNOSIS No Discharge Core Measures Meds if any: Prescribed or Continued at Discharge Meds if any: NOT Prescribed or Continued at Discharge Congestive Heart Failure Inclusion Criteria At DC or during hospital stay patient has or had the following: CHF DIAGNOSIS No Discharge Core Measures Meds if any: Prescribed or Continued at Discharge Meds if any: NOT Prescribed or Continued at Discharge Cerebrovascular accident Inclusion Criteria At DC or during hospital stay patient has or had the following: CVA/TIA Diagnosis No Discharge Core Measures Meds if any: Prescribed or Continued at Discharge Meds if any: NOT Prescribed or Continued at Discharge Venous thromboembolism Inclusion Criteria VTE Diagnosis No VTE Type NONE VTE Confirmed by (Test) NONE Discharge Core Measures - Per Current guidelines, there needs to be overlap - treatment for the first 5 days of Warfarin therapy. - If discharged on Warfarin prior to 5 days of - overlap therapy, the patient will need to be - assessed for post discharge needs including - *Post discharge parental anticoagulation - *Warfarin and/or parental anticoagulation education - *Follow up date to check INR post discharge At least 5 days overlap therapy as Inpatient No Meds if any: Prescribed or Continued at Discharge Note: Overlap Therapy is Warfarin and Anticoagulant Meds if any: NOT Prescribed or Continued at Discharge
--- NOTE | 2018-02-11 10:46 | PN- Cardiology ---
Subjective Subjective: * Patient is doing well without lightheadedness. * atrial fibrillation with normal to slightly increased heart rate. No true bradycardia is noted. Objective Vital Signs and I&Os Vital Signs Date Time Temp Pulse Resp B/P B/P Pulse O2 O2 Flow FiO2 Mean Ox Delivery Rate 02/11 0600 98.3 74 16 100/68 96 02/11 0145 68 118/82 02/10 2210 99.0 91 16 100/78 91 02/10 1419 98.8 77 20 112/60 96 Room Air 02/10 1142 82 Intake & Output 02/11 1600 02/11 0800 02/11 0000 02/10 1600 02/10 0800 02/10 0000 Intake Total 600 400 220 580 Output Total 800 Balance 600 400 -800 220 580 Intake, Oral 600 400 220 580 Output, Urine 800 Patient 142 lb 145 lb Weight Physical Exam: General: WD/WN male in NAD; alert and oriented x 3 HEENT: NC/AT, PERRL, EOMI Neck: no JVD, no carotid bruit Heart: irregularly irregular Lungs: clear bilaterally Abdomen: soft, NT, +ve bowel sounds Extremities: no edema Assessment/Plan Assessment/Plan * This patient has had a true syncopal episodes and multiple prior falls associated with a slight decrease in his mental acuity. 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 At the moment, his telemetry does not document this however. We will continue to monitor for another day. If tachy-vanessa syndrome is present then the two options for treatment are 1) place a permanent pacemaker and use negative chronotropic agents as needed for tachycardia or 2) cardiovert to a sinus rhythm and place on an antiarrhythmic drug to maintain a sinus rhythm. I suspect that the later approach is intended by the patient's usual ceiling installer although my hope for nursing home success is not hopeful due to the extended length of time the patient has been in atrial fibrillation and due to his enlarged left atrium. We will have the patient's usual ceiling installer decide. * If necessary, the patient can have a loop recorder implanted to assess for tachy-vanessa syndrome if this diagnosis cannot be confirmed and if the patient continues to syncopize. * For now, I feel it is safer to let the patient run a slightly faster heart rate rather than pass out. Decrease his Cardizem to 60mg PO BID. The patient is now hemodynamically stable and can be discharged to home with follow up by his own ceiling installer on Wednesday. Continue telemetry? No
[2018-02-11 11:09] VITALS: BP 100/68
== END 2018-02-11 12:12 ==
LOC: ERH 13:36 → 1NO 17:17 → ERHI 17:17 → ENRESERV 17:49 → 1NO 18:06
PROVIDERS: Internal Medicine; Physician Assistant Medical
DX: R55 Syncope and collapse (principal); W10.9XXA Fall (on) (from) unspecified stairs and steps, initial encounter; Z91.81 History of falling; Y92.019 Unspecified place in single-family (private) house as the place of occurrence of the external cause; I48.91 Unspecified atrial fibrillation; Z79.01 Long term (current) use of anticoagulants; E78.5 Hyperlipidemia, unspecified; R00.1 Bradycardia, unspecified; Z87.891 Personal history of nicotine dependence
CPT/HCPCS: 36592; 71046; 73080-LT; 82436; 93005; 93010; 96360; G0378